=== PATIENT | female | born 1985 | race Caucasian/White ===

== ENCOUNTER 2023-03-24 09:48 | Emergency (ER) | payer SELFPAY | END 2023-03-24 10:40 | disposition home or self-care (01) | LOC: MW.ED 09:48 | DX: S63.501A Unspecified sprain of right wrist, initial encounter (principal); Y04.8XXA Assault by other bodily force, initial encounter | CPT/HCPCS: 73110-26-RT; 73110-RT; 73130-26-RT; 73130-RT; 99283; 99284 ==